=== PATIENT | male | born 1985 | race African-American/Black ===

== ENCOUNTER 2018-01-21 13:14 | Emergency (ER) | payer SELFPAY ==
[~2018-01-21] VITALS: Ht 170.2 cm; Wt 77.1 kg
[2018-01-21 13:22] VITALS: BP 129/77
--- NOTE | 2018-01-21 14:45 | NUR ---
PT PRESENTS TO ER C/O "MY PHONE AND ROOMMATES ARE LOST". BIZARRE BEHAVIOR S/P SMOKING MARIJUANA 5 DAYS AGO. DENIES DRUG USE. A/OX4. RESP EVEN UNLABORED. NAD NOTED. IN ER ED 15. Addendum: 01/21/18 at 1546 by HFOX DENIES SI/HI
[2018-01-21 15:01] LABS: BASOPHILS % (AUTO) 0.4 % (0.0-2.0); EOSINOPHILS % (AUTO) 1.4 % (0.0-6.0); HEMATOCRIT 48 % (39-51); LYMPHOCYTES # (AUTO) 1.9 /CMM (0.8-4.8); MEAN CORPUSCULAR HGB CONC 33 g/dl (31.0-36.0); MEAN CORPUSCULAR VOLUME 91 fL (80-96); MONOCYTES # (AUTO) 0.6 /CMM (0.1-1.30); MONOCYTES % (AUTO) 8.2 % (2.0-12.0); NEUTROPHILS # (AUTO) 4.3 /CMM (1.8-8.9); PLATELET COUNT (AUTO) 193 /CMM (150-450); RED BLOOD CELL COUNT(AUTO) 5.27 MIL/uL (4.5-6.0); WHITE BLOOD COUNT (AUTO) 6.9 K/uL (4.3-11.0)
[2018-01-21 15:08] LABS: CALCIUM, SERUM 8.7 mg/dL (8.5-10.1); CARBON DIOXIDE 27 mmol/L (21-32); CHLORIDE 103 mmol/L (98-107); CREATININE 0.9 mg/dL (0.6-1.3); GLUCOSE 87 mg/dL (74-106); POTASSIUM 3.6 mmol/L (3.5-5.1); SODIUM SERUM 140 mmol/L (136-145); UREA NITROGEN, BLOOD 10 mg/dL (7-18)
[2018-01-21 15:14] LABS: ACETAMINOPHEN 0 ug/ml (10-30); ALANINE AMINOTRANSFERASE 26 U/L (12-78); ALBUMIN 4.3 g/dL (3.4-5.0); ALCOHOL, BLOOD < 3 mg/dL (0-0); ALKALINE PHOSPHATASE 68 U/L (46-116); ASPARTATE AMINOTRANSFERASE 21 U/L (15-37); BILIRUBIN,DIRECT 0.1 mg/dL (0.0-0.2); BILIRUBIN,TOTAL 0.6 mg/dL (0.2-1.0); SALICYLATE 3.9 mg/dL (2.8-20.0); TOTAL PROTEIN, SERUM 7.8 g/dL (6.4-8.2)
--- NOTE | 2018-01-21 15:38 | NUR ---
UPON ROUNDING TO CHECK ON PT, HE WAS NOT FOUND IN HIS ER BED OR IN ANY RESTROOM IN UNIT. PT ELOPED. ENGINEER CONDUCTOR AND MD NOTIFIED.
== END 2018-01-21 15:47 | disposition left against medical advice (07) ==
LOC: ER 13:16
DX: F60.0 Paranoid personality disorder (principal); F12.10 Cannabis abuse, uncomplicated
CPT/HCPCS: 36415; 80048; 80076; 80329; 85025; 99283; A4606; G0480 ×2; Z7610